=== PATIENT | male | born 1950 | race Caucasian/White ===

== ENCOUNTER 2019-12-08 13:49 | Emergency (ER) | payer OTHER ==
[~2019-12-08] VITALS: Ht 177.8 cm; Wt 113.6 kg
[2019-12-08 14:08] VITALS: BP 112/60; Ht 177.8 cm; Wt 113.6 kg
[2019-12-08] MEDS ORDERED: COZAAR25 MG PO (14:09)
[2019-12-08] MEDS ORDERED: PROCARDIA10 MG PO (14:09)
[2019-12-08] MEDS ORDERED: ISOSORBIDE DINI10 MG PO (14:09)
[2019-12-08] MEDS ORDERED: NITROSTAT0.4 MG SL (14:09)
[2019-12-08] MEDS ORDERED: LASIX20 MG PO (14:10)
[2019-12-08] MEDS ORDERED: CYCLOBENZAPRINE10 MG PO (16:12)
[2019-12-08] MEDS ORDERED: VOLTAREN75 MG PO (16:12)
== END 2019-12-08 18:54 | disposition home or self-care (01) ==
LOC: D.ER 13:49
DX: M54.5 Low back pain (principal); I10 Essential (primary) hypertension; Z86.73 Personal history of transient ischemic attack (TIA), and cerebral infarction without residual deficits; I25.2 Old myocardial infarction

== ENCOUNTER 2020-02-03 16:33 | Emergency (ER) | payer OTHER ==
[~2020-02-03] VITALS: Ht 177.8 cm; Wt 102.3 kg
[~2020-02-03 16:33] MED LIST: COZAAR25 MG PO; CYCLOBENZAPRINE10 MG PO; ISOSORBIDE DINI10 MG PO; LASIX20 MG PO; NITROSTAT0.4 MG SL; PROCARDIA10 MG PO; VOLTAREN75 MG PO
[2020-02-03 16:57] VITALS: BP 102/66; Ht 177.8 cm; Wt 102.3 kg
[2020-02-03] MEDS ORDERED: NORVASC5 MG PO (16:59)
[2020-02-03] MEDS ORDERED: HYTRIN1 MG PO (17:00)
== END 2020-02-03 20:36 | disposition home or self-care (01) ==
LOC: D.ER 16:33
DX: G89.29 Other chronic pain (principal); M54.89 Other dorsalgia; I10 Essential (primary) hypertension; I25.2 Old myocardial infarction; J44.9 Chronic obstructive pulmonary disease, unspecified; Z86.73 Personal history of transient ischemic attack (TIA), and cerebral infarction without residual deficits